=== PATIENT | female | born 1940 | race Two or more races ===

== ENCOUNTER 2024-10-27 13:01 | Outpatient (CLI) | payer OTHER | END 2024-10-27 14:05 | disposition home or self-care (01) | LOC: WOUND CARE 13:01 | PROVIDERS: ATTEND Specialist | DX: E11.621 Type 2 diabetes mellitus with foot ulcer (principal); L97.922 Non-pressure chronic ulcer of unspecified part of left lower leg with fat layer exposed; Z79.4 Long term (current) use of insulin; I73.9 Peripheral vascular disease, unspecified | CPT/HCPCS: 97602; A4927; A6199; A6219; A6223 ==

== ENCOUNTER 2024-10-31 08:47 | Outpatient (CLI) | payer OTHER | END 2024-10-31 10:30 | disposition home or self-care (01) | LOC: WOUND CARE 08:47 | PROVIDERS: ATTEND Specialist | DX: E11.621 Type 2 diabetes mellitus with foot ulcer (principal); L97.922 Non-pressure chronic ulcer of unspecified part of left lower leg with fat layer exposed; Z79.4 Long term (current) use of insulin; I73.9 Peripheral vascular disease, unspecified | CPT/HCPCS: 11042; A4927; A6021; A6219; A6223 ==

== ENCOUNTER 2024-10-31 09:03 | Outpatient (CLI) | payer OTHER | END 2024-10-31 09:06 | disposition home or self-care (01) | LOC: NUCLEAR 09:03 | PROVIDERS: ATTEND Specialist | DX: I87.2 Venous insufficiency (chronic) (peripheral) (principal) ==

== ENCOUNTER 2024-11-03 08:37 | Outpatient (CLI) | payer OTHER | END 2024-11-03 08:39 | disposition home or self-care (01) | LOC: NUCLEAR 08:37 | PROVIDERS: ATTEND Specialist | DX: I73.9 Peripheral vascular disease, unspecified (principal) ==

== ENCOUNTER 2024-12-08 15:10 | Inpatient (IN) | payer OTHER ==
[~2024-12-08] VITALS: Ht 154.9 cm; Wt 47.6 kg
[2024-12-08] MEDS ORDERED: LOSARTAN POTAS100 MG (16:11)
[2024-12-08] MEDS ORDERED: PEPCID20 MG PO (16:12)
[2024-12-08] MEDS ORDERED: AMLODIPINE-ATO1 EAC4 PO (16:12)
[2024-12-08] MEDS ORDERED: PLAVIX75 MG (16:13)
[2024-12-08] MEDS ORDERED: ARICEPT10 MG (16:13)
[2024-12-08] MEDS ORDERED: HORIZANT300 MG (16:13)
[2024-12-08] MEDS ORDERED: SYNTHROID75 MCG PO (16:14)
[2024-12-08] MEDS ORDERED: DAFLONEX-XL 11300 MG PO (16:14)
--- NOTE | 2024-12-08 16:15 | NUR ---
PTE ALERTA Y ORIENTADA X3, SE RADHA S/V. PTE REFIERE QUE DR. GREENE HENDERSON LE ENTREGO REFERIDO PARA SER ADMITIDA. SE UBICA EN OBSERVACION/. PTE PRESENTA CELLULITIS EN [facility].
[2024-12-08] MEDS ORDERED: 0.9 % SODIUM CHLORIDE 500 ML IV STA (17:38)
[2024-12-08] MEDS ORDERED: PIPERACILLIN/TAZOBACTAM SODIUM 3.375 GM VIAL IV ONE ×2 (17:41→17:45)
--- NOTE | 2024-12-08 18:07 | NUR ---
PACIENTE ALERTA Y ORIENTADA X3. SE EDUCA A PACIENTE SOBRE PROCESO DE SANIA DE MUESTRAS, CANALIZACION Y ADMINISTRACION DE MEDICAMENTOS, REFIERE ENTENDER. SE EJECUTAN ORDENES BAJO MEDIDAS ASEPTICAS.
[2024-12-08 18:12] LABS: HEMOGLOBIN 11.9 g/dL (12.0-15.00); MEAN CELL VOLUME 93.9 fL (80.00-100.00); MEAN CORPUSCULAR HEMOGLOBIN 30.3 pg (27.00-32.0); MEAN CORPUSCULAR HGB CONC 32.3 g/dl (32.0-36.0); PLATELET COUNT 248 K/uL (150-450); RED BLOOD COUNT 3.94 M/uL (4.00-6.00); RED CELL DISTRIBUTION WIDTH 13.8 % (11.5-14.5)
[2024-12-08 18:31] LABS: INR 0.98; PARTIAL THROMBOPLASTIN TIME 24.1 SECONDS (22.0-34.0); PROTHROMBIN TIME 10.7 SECONDS (9.0-11.5)
[2024-12-08 18:33] LABS: CALCIUM 9.1 mg/dL (8.5-10.1); CREATININE SERUM 1.13 mg/dL (0.55-1.02); GFR 45.98; POTASSIUM 5.01 mEq/L (3.5-5.1)
[2024-12-08] MEDS ORDERED: 0.9 % SODIUM CHLORIDE 1,000 ML IV SCH (20:30)
[2024-12-08] MEDS ORDERED: ACETAMINOPHEN 500 MG GEL..CAP PO PRN (20:45)
[2024-12-08 21:37] VITALS: BP 164/76; O2SAT 100
[2024-12-08 21:41] VITALS: BP 164/76
[2024-12-08 22:05] LABS: C-REACTIVE PROTEIN 1.88 MG/DL (0.00-0.29)
[2024-12-09] MEDS ORDERED: PIPERACILLIN/TAZOBACTAM SODIUM 2.25 GM in DEXTROSE 5 % IN WATER 50 ML IV SCH
[2024-12-09 01:16] VITALS: BP 157/63; O2SAT 94
[2024-12-09 05:08] LABS: URINE APPEARANCE Clear; URINE BILIRRUBIN Negative (NEGATIVE); URINE BLOOD Negative; URINE COLOR Yellow; URINE GLUCOSE Negative (NEGATIVE); URINE KETONE Negative (NEGATIVE); URINE LEUKOCYTE Negative; URINE NITRATE Negative; URINE UROBILINOGEN 0.2 E.U./dl
[2024-12-09 05:12] LABS: URINE BACTERIA 42.7 uL (0.0-1933); URINE EPITHELIAL CELLS 3.4 uL (0.0-38.8); URINE RBC 3.2 uL (0.0-20.8); URINE WBC 15.5 uL (0.0-23.2)
[2024-12-09 05:34] LABS: URINE PROTEIN 100 (NEGATIVE)
[2024-12-09] MEDS ORDERED: LEVOTHYROXINE SODIUM 75 MCG TABLET PO SCH (06:00)
[2024-12-09 08:20] VITALS: BP 158/69
[2024-12-09] MEDS ORDERED: ATORVASTATIN CALCIUM 10 MG TABLET PO SCH (09:00)
[2024-12-09] MEDS ORDERED: SODIUM HYPOCHLORITE 1OZ TOP SCH (09:00)
[2024-12-09] MEDS ORDERED: GABAPENTIN 300 MG CAPSULE PO SCH (09:00)
[2024-12-09] MEDS ORDERED: LOSARTAN POTASSIUM 100 MG TABLET PO SCH (09:00)
[2024-12-09] MEDS ORDERED: AMLODIPINE BESYLATE 10 MG TABLET PO SCH (09:00)
[2024-12-09] MEDS ORDERED: DONEPEZIL HCL 10 MG TABLET PO SCH (17:00)
[2024-12-09 19:02] VITALS: BP 150/56
[2024-12-09] MEDS ORDERED: CEFAZOLIN SODIUM 2,000 MG in 0.9 % SODIUM CHLORIDE 100 ML IV SCH (21:00)
[2024-12-09] MEDS ORDERED: CEFAZOLIN SODIUM 1,000 MG VIAL ONE (21:37)
[2024-12-10 00:45] VITALS: BP 136/69; O2SAT 94
[2024-12-10] MEDS ORDERED: LACTOBACILLUS ACIDOPHILUS 1 CAP CAP PO SCH (09:00)
[2024-12-10 09:06] VITALS: BP 170/70
[2024-12-10 17:08] VITALS: BP 171/67; O2SAT 96
[2024-12-11 01:52] VITALS: BP 146/73; O2SAT 96
[2024-12-11] MEDS ORDERED: DEXTROSE 50 % IN WATER 0.5 G/ML DISP.SYRIN IV PRN (06:15)
[2024-12-11] MEDS ORDERED: INSULIN LISPRO 1,000 UNIT/10 ML UNITS SUBCUTANEO PRN (06:15)
[2024-12-11 08:16] LABS: ALBUMIN 2.9 gm/dL (3.4-5.0); BILIRUBIN TOTAL 0.34 mg/dL (0.3-1.2); CALCIUM 9.4 mg/dL (8.5-10.1); CREATININE SERUM 0.83 mg/dL (0.55-1.02); GFR 65.65; GLOBULINA 3.4 G/DL (2.4-3.5); MAGNESIUM 1.8 mg/dL (1.8-2.4); PHOSPHOROUS 3.7 mg/dL (2.5-4.9); POTASSIUM 4.32 mEq/L (3.5-5.1); TOTAL PROTEIN 6.3 gm/dL (6.4-8.2)
[2024-12-11 08:21] LABS: HEMOGLOBIN 11.6 g/dL (12.0-15.00); MEAN CELL VOLUME 93.2 fL (80.00-100.00); MEAN CORPUSCULAR HEMOGLOBIN 30.9 pg (27.00-32.0); MEAN CORPUSCULAR HGB CONC 33.1 g/dl (32.0-36.0); PLATELET COUNT 256 K/uL (150-450); RED BLOOD COUNT 3.75 M/uL (4.00-6.00); RED CELL DISTRIBUTION WIDTH 13.7 % (11.5-14.5)
[2024-12-11 08:35] LABS: C-REACTIVE PROTEIN 1.27 MG/DL (0.00-0.29)
[2024-12-11 09:00] VITALS: BP 164/64
[2024-12-11 17:42] VITALS: BP 129/77; O2SAT 96
[2024-12-12 00:37] VITALS: BP 153/68; O2SAT 97
[2024-12-12] MEDS ORDERED: LEVOTHYROXINE SODIUM 50 MCG TABLET PO SCH (06:00)
[2024-12-12 08:07] VITALS: BP 117/70
[2024-12-12 19:01] VITALS: BP 182/87
[2024-12-12] MEDS ORDERED: SULFAMETHOXAZOLE/TRIMETHOPRIM DS 1 TAB PO SCH (21:00)
[2024-12-13 02:30] VITALS: BP 169/51; O2SAT 99
[2024-12-13 08:51] VITALS: BP 176/72; O2SAT 94
[2024-12-13 17:00] VITALS: BP 154/81; O2SAT 95
[2024-12-13] MEDS ORDERED: CHLORHEXIDINE GLUCONATE 120 ML BOTTLE TOP SCH (17:00)
[2024-12-13] MEDS ORDERED: MUPIROCIN 22 GM OINT..GM TUBE NASAL SCH (21:00)
[2024-12-14 02:58] VITALS: BP 137/63; O2SAT 98
[2024-12-14 08:48] VITALS: BP 150/68; O2SAT 99
== END 2024-12-14 18:20 | disposition home or self-care (01) | DRG 571 ==
LOC: ER 15:13 → MEDI 20:56 → MEDJ 12-12 08:13
PROVIDERS: Emergency Medicine; General Practice; Internal Medicine Infectious Disease; ADMIT Internal Medicine; ATTEND Internal Medicine
PROC: 0JBP0ZZ Excision of Left Lower Leg Subcutaneous Tissue and Fascia, Open Approach (ICD-10-PCS; principal; 2024-12-12)
PROC: 0JBN0ZZ Excision of Right Lower Leg Subcutaneous Tissue and Fascia, Open Approach (ICD-10-PCS; 2024-12-12)
PROC: 8E0ZXY6 Isolation (ICD-10-PCS; 2024-12-12)
DX: L03.115 Cellulitis of right lower limb (principal); L97.819 Non-pressure chronic ulcer of other part of right lower leg with unspecified severity; L97.829 Non-pressure chronic ulcer of other part of left lower leg with unspecified severity; L03.116 Cellulitis of left lower limb; I83.018 Varicose veins of right lower extremity with ulcer other part of lower leg; I83.028 Varicose veins of left lower extremity with ulcer other part of lower leg; I11.9 Hypertensive heart disease without heart failure; K59.00 Constipation, unspecified; G30.9 Alzheimer's disease, unspecified; E03.9 Hypothyroidism, unspecified; E78.5 Hyperlipidemia, unspecified; B95.61 Methicillin susceptible Staphylococcus aureus infection as the cause of diseases classified elsewhere; Z95.1 Presence of aortocoronary bypass graft